=== PATIENT | male | born 1990 | race Caucasian/White ===

== ENCOUNTER 2024-09-21 21:06 | Outpatient (CLI) | payer OTHER, MEDICAID, SELFPAY | END 2024-09-21 21:07 | disposition home or self-care (01) | LOC: SLEEP 21:12 | PROVIDERS: PCP Nurse Practitioner; Visit Provider Internal Medicine | DX: G47.33 Obstructive sleep apnea (adult) (pediatric) (principal); R09.02 Hypoxemia | CPT/HCPCS: 95811 ==